=== PATIENT | female | born 1970 | race Caucasian/White ===

== ENCOUNTER 2024-05-20 10:25 | Observation (INO) | payer MEDICAID, SELFPAY ==
[2024-05-20] VITALS (8 sets, daily range): BP systolic 92–172; BP diastolic 56–93; PULSE 53–73; RESP 14–18; TEMP 36.2–36.7; O2SAT 92–98; BMI 29.5; BMI 31.2
--- NOTE | 2024-05-20 11:34 | EX.ED.DYSGE1 ---
HPI History of Present Illness Chief Complaint: Weakness Informant: patient and spouse/S.O. Narrative Narrative: 53-year-old female presenting to the emergency room with generalized weakness. Patient has a history most recently of right tonsillar cancer. She just finished radiation chemotherapy at [facility]. He patient earlier this month was admitted for anemia and given blood transfusion. Patient notes continued right tonsillar pain. She notes nausea. She is concerned she may have thrush again. She states that nothing seems to make her pain better. She gets mild temporary relief with Magic mouthwash/viscous lidocaine. Patient takes Dilaudid. She does have a feeding tube and has been using that and maintaining weight. Patient recently moved and have not been to this hospital before. Her significant other, Sundar, has access to [employer]. [facility] Medical History (Updated 05/20/24 @ 14:[address] Benjamín Alvarez DO) Right tonsillar squamous cell carcinoma COPD (chronic obstructive pulmonary disease) Allergy/AdvReac Type Severity Reaction Status Date / Time morphine Allergy Mild Other Verified 05/20/24 12:00 povidone-iodine (From Allergy Anaphylaxis Verified 05/20/24 12:00 Betadine) Social History Smoking Status: Current every day smoker tobacco type: cigarettes ROS ROS ED ROS Narrative Generalized fatigue Constitutional Constitutional ED: Reports chills; Denies fever(s) or weight loss Eyes Eyes: Denies change in vision or diplopia ENT ENT ED: Reports ear pain and sore throat; Denies rhinorrhea Cardiovascular Cardiovascular: Denies chest pain, orthopnea, palpitations or racing heartbeat Respiratory/Chest Respiratory/Chest: Denies cough, dyspnea or orthopnea Gastrointestinal Gastrointestinal: Reports nausea; Denies abdominal pain, diarrhea or vomiting Genitourinary Genitourinary ED: Denies dysuria, hematuria or urinary frequency Musculoskeletal Musculoskeletal: Denies arthralgias or myalgias Integumentary Denies abscess or rash Neurologic Neurologic: Denies headache(s) or weakness Psychiatric Psychiatric: Denies anxiety, depression, suicidal ideation or suicidal thoughts Endocrine Endocrinology: Denies polydipsia, polyphagia or polyuria Allergic/Immunologic Allergic/Immunologic ED: Denies mouth swelling, tongue swelling or urticaria EXAM Physical Exam Const Vital Signs: 05/20/24 10:25 05/20/24 12:15 05/20/24 12:25 Temperature 97.1 F L Temperature Source Temporal Pulse Rate 70 73 Pulse Rate [Lying] Pulse Rate [Sitting (for 1 minute prior to obtaining)] Pulse Rate [Standing (for 1 minute prior to obtaining)] Respiratory Rate 18 16 Respiratory Pattern Normal Blood Pressure 92/63 172/93 H Blood Pressure [Lying] Blood Pressure [Sitting (for 1 minute prior to obtaining)] Blood Pressure [Standing (for 1 minute prior to obtaining)] Blood Pressure Mean 72 119 Blood Pressure Mean [Lying] Blood Pressure Mean [Sitting (for 1 minute prior to obtaining)] Blood Pressure Mean [Standing (for 1 minute prior to obtaining)] Pulse Ox 92 95 Oxygen Delivery Method Room Air Room Air 05/20/24 12:55 05/20/24 14:00 Temperature Temperature Source Pulse Rate 53 L Pulse Rate [Lying] 68 Pulse Rate [Sitting (for 1 minute prior to obtaining)] 62 Pulse Rate [Standing (for 1 minute prior to obtaining)] 66 Respiratory Rate 18 Respiratory Pattern Blood Pressure 116/72 Blood Pressure [Lying] 103/56 L Blood Pressure [Sitting (for 1 minute prior to obtaining)] 113/77 Blood Pressure [Standing (for 1 minute prior to obtaining)] 110/73 Blood Pressure Mean 86 Blood Pressure Mean [Lying] 71 Blood Pressure Mean [Sitting (for 1 minute prior to obtaining)] 89 Blood Pressure Mean [Standing (for 1 minute prior to obtaining)] 85 Pulse Ox 98 Oxygen Delivery Method Room Air Positive well nourished and well developed General Appearance ED: well developed HEENT Reports normocephalic, head/scalp atraumatic and moist mucous membranes HEENT Narrative: There were no significant radiation vazquez on the skin of the neck or face. There is evidence of thrush noted on the right tonsillar pillar left tonsillar pillar and left soft palate as well as left buccal mucosa. Eyes PERRL and EOMs intact bilaterally Neck no lymphadenopathy, supple and no JVD Resp normal respiratory effort and clear to auscultation bilaterally Cardio regular rate, regular rhythm and no murmurs GI normal to inspection, nondistended, normoactive bowel sounds and non-tender Palpation: soft Back/Spine no CVA tenderness and normal ROM Extremity normal to inspection General Extremety ED: Negative for edema General Extremity: Negative for edema Neuro oriented x3 and CN's II-XII intact bilaterally Sensorium / Orientation: alert Motor Exam: strength 5/5 throughout Psych mental status grossly normal Mood & Affect: Negative for depressed or tearful Skin no rashes or lesions noted and no wounds MDM MDM MDM Narrative Medical decision making narrative: Differential diagnosis includes but not limited to dehydration anemia electrolyte imbalance cardiac dysrhythmias White count returns at 7.3 hemoglobin 8.2 which seems consistent with her prior values recently at [facility] which the hide and shows me on his phone. Platelet count is 215. Potassium noted to be markedly low at 2.6 with a magnesium of 1.6. BUN of 21 creatinine 1.43. Alkaline phosphatase is 168. Lipase 10. Urinalysis shows no overt infection. Patient was treated with IV fluids. With the hypokalemia I asked for an EKG. He was noted that she was bradycardic and I placed her on the monitor and noted that she would become bradycardic into the 30s and then come back up into the 60s and this process was repeated intermittently. With the potassium we administered IV potassium and potassium through the PEG tube. Patient is to be taking potassium supplementation at home. We also administered IV magnesium. Troponin is negative. With the hypokalemia and the bradycardia I spoke with the patient about possibly admitting here versus transferring back to [facility]. She would like to stay here. She has not had this type of issue noted in the past and I wonder if this is related to her hypokalemia. I will speak with the hospitalist regarding admission I spoke with the patient at length regarding the pain from her radiation and tonsils. We gave her Dilaudid but she notes that almost nothing seems to make the pain better other than some viscous lidocaine which I would agree is a temporary fix. Significant other and the patient initially declined any benzodiazepine for anxiety to help her relax. She has been taking this but does not like it as it makes her just sleepy. I spoke with her regarding her mental health and advised her that she may wish to speak with psychiatry that there are some medications that may help with her anxiety pain and depression. They will discuss this further. History & Record Review Discussion w/independent historian: Patient and Significant other Additional record(s) reviewed:: Prior outpatient record and Prior labs Lab Data Attestation: I reviewed the patient's lab results. Labs: Laboratory Results - last 24 hr 05/20/24 05/20/2405/20/24 12:02 13:00 14:30 WBC 7.3 RBC 2.56 L Hgb 8.2 L Hct 24.4 L MCV 95.3 MCH 32.0 MCHC 33.6 RDW Std Deviation 54.1 H RDW Coeff of Rubi 15.6 H Plt Count 215 MPV 10.1 Immature Gran % (Auto) 0.400 Neut % (Auto) 67.8 Lymph % (Auto) 16.4 L Evangeline % (Auto) 13.1 H Eos % (Auto) 1.9 Baso % (Auto) 0.4 Absolute Neuts (auto) 5.0 Absolute Lymphs (auto) 1.20 Nucleated RBC % 0 Sodium 140 Potassium 2.6 L* Chloride 101 Carbon Dioxide 30.0 Anion Gap 9 BUN 21 H Creatinine 1.43 H Estim Creat Clear Calc 40.46 Est GFR (MDRD) Af Amer 49 L Est GFR (MDRD) Non-Af 41 L BUN/Creatinine Ratio 14.7 Glucose 92 Calcium 8.4 L Magnesium Cancelled 1.6 Total Bilirubin 0.80 Direct Bilirubin 0.37 H AST 14 L ALT 7 L Alkaline Phosphatase 168 H Troponin I High Sens 9 Total Protein 5.9 L Albumin 2.6 L Globulin 3.3 Lipase 10 L Urine Color Yellow Urine Clarity Clear Urine pH 5.0 Ur Specific [place] 1.015 Urine Protein 15 H Urine Glucose (UA) Normal Urine Ketones 15 H Urine Occult Blood Negative Urine Nitrite Negative Urine Bilirubin 1 H Urine Urobilinogen 4 H Ur Leukocyte Esterase Negative Urine RBC 0 SEEN Urine WBC 0 SEEN Ur Squamous Epith Cells 0-5 SEEN Urine Bacteria 1+ Urine Mucus 0 SEEN EKG Initial EKG: Attestation: I personally reviewed and interpreted this EKG as follows: Comments: Sinus bradycardia with a ventricular rate of 43 bpm. There is a marked sinus arrhythmia noted. Discharge Plan Dx/Rx/DC Orders Clinical Impression: Acute hypokalemia, Acute dehydration, Primary squamous cell carcinoma of tonsil, Bradycardia Disposition Disposition: Acute Care [facility]
[2024-05-20] MEDS: 0.9% Normal Saline (1000mL) 1,000 ML 1000 ML IV ×2 (11:58→12:24)
[2024-05-20 12:08] LABS: Basophil# 0.03 X10^3/uL; Basophil% 0.4 % (0-1); Eosinophil# 0.14 X10^3/uL; Eosinophils% 1.9 % (0-5); Hematocrit 24.4 % (37-47); Hemoglobin 8.2 g/dL (12.0-15.0); Lymphocyte % 16.4 % (19-41); Mean Corp Hgb Conc 33.6 g/dL (32-36); Mean Corpuscular Volume 95.3 fL (81-99); Mean Platelet Vol. 10.1 fl (6.2-12.0); Monocyte# 0.96 X10^3/uL; Monocyte% 13.1 % (0-10); NRBC Flagged by Analyzer 0 % (0-5); Neutrophil # 4.95 X10^3/uL (2.7-7.7); Neutrophil % 67.8 % (47-70); Platelet Count 215 K/mm3 (150-450); RBC Distribution Width CV 15.6 % (11.6-14.6); RBC Distribution Width SD 54.1 fl (35.1-43.9); Red Blood Count 2.56 M/mm3 (4.2-5.4); White Blood Count 7.3 K/mm3 (4.4-11.0)
[2024-05-20] MEDS: HYDROmorphone 1 MG/ML Syringe IV (12:24)
[2024-05-20 13:04] LABS: Mucous, Urine 0 SEEN /hpf (<or=2+); Red Blood Cells-Urine 0 SEEN /hpf (0-5); White Blood Cells 0 SEEN /hpf (0-5)
[2024-05-20 13:05] LABS: Color, Urine Yellow (Yellow); Glucose, Dipstick Normal (Normal); Ketone-Dipstick 15 mg/dl (Negative); Leukocyte Esterase-Dipstick Negative /ul (Negative); Nitrite-Dipstick Negative (Negative); Occult Blood-Urine Negative /ul (Negative); Protein-Dipstick 15 mg/dl (Negative); Specific Gravity, Urine 1.015 (1.002-1.030); Urine Bilirubin Dipstick 1 mg/dL (Negative); Urine Clarity Clear (Clear); Urine Urobilinogen 4 mg/dl (Normal)
[2024-05-20 13:12] LABS: AST(SGOT) 14 U/L (15-37); Alanine Aminotransfer ALT/SGPT 7 U/L (13-56); Albumin, Serum 2.6 g/dL (3.2-5.0); Alkaline Phosphatase 168 U/L (45-117); Anion Gap 9 (5-15); BUN 21 mg/dL (7-18); BUN/Creat Ratio 14.7 RATIO (10-20); Bilirubin, Direct 0.37 mg/dL (0.00-0.30); Calcium,Total 8.4 mg/dL (8.5-10.1); Chloride 101 mmol/L (98-107); Creatinine, Serum 1.43 mg/dL (0.55-1.02); EST Glomerular Filtration Rate 41 mL/min (>60); Est Glom Filt Rate - Afr Amer 49 mL/min (>60); Estimated Creatinine Clearance 40.46 ml/min; Globulin 3.3 g/dL (2.2-4.2); Glucose 92 mg/dL (74-106); Lipase 10 U/L (13-75); Potassium 2.6 mmol/L (3.5-5.1); Protein, Total 5.9 g/dL (6.4-8.2); Sodium Level 140 mmol/L (136-145)
--- NOTE | 2024-05-20 13:17 | EKG12_ITS ---
Test Reason : LOW K Blood Pressure : / mmHG Vent. Rate : 043 BPM Atrial Rate : 059 BPM P-R Int : 136 ms QRS Dur : 100 ms QT Int : 446 ms P-R-T Axes : 057 -14 011 degrees QTc Int : 376 ms Sinus bradycardia with marked sinus arrhythmia Incomplete right bundle branch block T wave abnormality, consider inferior ischemia Abnormal ECG Confirmed by BOBBI MATHEWS, LUCILLE ([id number]), writer editor KENDY NICHOLS ([id number]) on 05/23/2024 8:09:59 AM Referred By: Confirmed By:LUCILLE MARTINES MD
[2024-05-20 13:19] LABS: Bacteria 1+ /hpf (None Seen); Squamous Epithelial Cells - UA 0-5 SEEN /hpf (5-10)
[2024-05-20] MEDS: Potassium Chloride 10mEq/100mL 10 MEQ/100 ML IV.SOLN. 100 MEQ IV BOLUS (13:58)
[2024-05-20] MEDS: Potassium Chloride Oral Soln 20 MEQ/15 ML UDC 40 MEQ PO (13:58)
[2024-05-20] MEDS: LORazepam 2 MG/ML Syringe 1 MG IV (14:31)
--- NOTE | 2024-05-20 14:53 | PCM.HP.STD ---
HPI - General General Date of Admission: 05/20/24 Date of Service: 05/20/24 Chief Complaint: Generalized weakness HPI Narrative ANTON BOSTON, is a 53-year-old female with history of right tonsillar cancer with GJ tube who just finished chemo and radiation at [facility] and COPD who presented for generalized weakness. She was admitted earlier this month for anemia and required blood transfusion. Patient has continued right tonsillar pain and some nausea and she was concerned for thrush. In ED patient with white count of 7.3, hemoglobin 8.2 and potassium of 2.6 with creatinine 1.43. She also intermittently had heart rates down to 30s and was felt that this was due to electrolyte abnormalities. Workup otherwise fairly unremarkable. Given her generalized weakness with elevated creatinine low potassium and intermittent bradycardia hospitalist contacted for admission. Patient evaluated at bedside however had received medication for pain and just received medication due to her significant anxiety so she was actively falling asleep and would wake up but quickly fell back asleep and not answer questions, was not at bedside at time my exam. History obtained from report which was patient had chemo and radiation for right sided tonsillar squamous cell carcinoma that finished 2 weeks ago and since has continued to have pain in her throat and has been feeling generally unwell and weak. Reportedly supposed be on potassium but has not been taking it she feels it vazquez through the PEG tube. Has been very anxious and upset over her pain. [facility] Medical History (Updated 05/20/24 @ 15:[address] Benjamín Alvarez DO) COPD (chronic obstructive pulmonary disease) Right tonsillar squamous cell carcinoma Allergy/AdvReac Type Severity Reaction Status Date / Time morphine Allergy Mild Other Verified 05/20/24 12:00 povidone-iodine (From Allergy Anaphylaxis Verified 05/20/24 12:00 Betadine) Social History Smoking Status: Current every day smoker tobacco type: cigarettes ROS ROS Narrative Unable to answer due to mental status Vital Signs Vital Signs Vital Signs: 05/20/24 10:25 05/20/24 12:15 05/20/24 12:25 Temperature 97.1 F L Temperature Source Temporal Pulse Rate 70 73 Pulse Rate [Lying] Pulse Rate [Sitting (for 1 minute prior to obtaining)] Pulse Rate [Standing (for 1 minute prior to obtaining)] Respiratory Rate 18 16 Respiratory Pattern Normal Blood Pressure 92/63 172/93 H Blood Pressure [Lying] Blood Pressure [Sitting (for 1 minute prior to obtaining)] Blood Pressure [Standing (for 1 minute prior to obtaining)] Blood Pressure Mean 72 119 Blood Pressure Mean [Lying] Blood Pressure Mean [Sitting (for 1 minute prior to obtaining)] Blood Pressure Mean [Standing (for 1 minute prior to obtaining)] Pulse Ox 92 95 Oxygen Delivery Method Room Air Room Air 05/20/24 12:55 05/20/24 14:00 05/20/24 14:52 Temperature 98.0 F Temperature Source Pulse Rate 53 L 53 L Pulse Rate [Lying] 68 Pulse Rate [Sitting (for 1 minute prior to obtaining)] 62 Pulse Rate [Standing (for 1 minute prior to obtaining)] 66 Respiratory Rate 18 16 Respiratory Pattern Blood Pressure 116/72 116/72 Blood Pressure [Lying] 103/56 L Blood Pressure [Sitting (for 1 minute prior to obtaining)] 113/77 Blood Pressure [Standing (for 1 minute prior to obtaining)] 110/73 Blood Pressure Mean 86 86 Blood Pressure Mean [Lying] 71 Blood Pressure Mean [Sitting (for 1 minute prior to obtaining)] 89 Blood Pressure Mean [Standing (for 1 minute prior to obtaining)] 85 Pulse Ox 98 98 Oxygen Delivery Method Room Air Weight Weight: 70.76 kg Body Mass Index (BMI) 29.5 Physical Exam Narrative General: Received medications due to her significant anxiety, will wake up but minimally willing to answer questions and falls back asleep quickly HEENT: Atraumatic, does have white patches consistent with thrush in mouth Eyes: Anicteric, normal conjunctiva, extraocular movements grossly intact Neck: Supple Respiratory:normal respiratory effort Cardiovascular: Sinus, intermittently heart rate goes to 30s in the back up to 50s to 70s GI: Soft, nontender, nondistended Extremities: No edema Musculoskeletal: Moving all extremities Neuro: No overt focal neurological deficits the patient not participating in neuroexam Skin: No rashes appreciated Psych: Not cooperating but seems in part due to being tired from treating pain and anxiety Results Lab / Micro Data 05/20/24 12:02 05/20/24 12:02 Labs: Laboratory Results - last 24 hr 05/20/24 12:02: WBC 7.3, RBC 2.56 L, Hgb 8.2 L, Hct 24.4 L, MCV 95.3, MCH 32.0, MCHC 33.6, RDW Std Deviation 54.1 H, RDW Coeff of Rubi 15.6 H, Plt Count 215, MPV 10.1, Immature Gran % (Auto) 0.400, Neut % (Auto) 67.8, Lymph % (Auto) 16.4 L, [place] % (Auto) 13.1 H, Eos % (Auto) 1.9, Baso % (Auto) 0.4, Absolute Neuts (auto) 5.0, Absolute Lymphs (auto) 1.20, Nucleated RBC % 0, Sodium 140, Potassium 2.6 L*, Chloride 101, Carbon Dioxide 30.0, Anion Gap 9, BUN 21 H, Creatinine 1.43 H, Estim Creat Clear Calc 40.46, Est GFR (MDRD) Af Amer 49 L, Est GFR (MDRD) Non-Af 41 L, BUN/Creatinine Ratio 14.7, Glucose 92, Calcium 8.4 L, Magnesium Cancelled, Total Bilirubin 0.80, Direct Bilirubin 0.37 H, AST 14 L, ALT 7 L, Alkaline Phosphatase 168 H, Total Protein 5.9 L, Albumin 2.6 L, Globulin 3.3, Lipase 10 L 05/20/24 13:00: Urine Color Yellow, Urine Clarity Clear, Urine pH 5.0, Ur Specific [place] 1.015, Urine Protein 15 H, Urine Glucose (UA) Normal, Urine Ketones 15 H, Urine Occult Blood Negative, Urine Nitrite Negative, Urine Bilirubin 1 H, Urine Urobilinogen 4 H, Ur Leukocyte Esterase Negative, Urine RBC 0 SEEN, Urine WBC 0 SEEN, Ur Squamous Epith Cells 0-5 SEEN, Urine Bacteria 1+, Urine Mucus 0 SEEN Assessment & Plan Assessment/Plan (1) Bradycardia: (2) Acute hypokalemia: (3) Primary squamous cell carcinoma of tonsil: PLAN: Plan # Generalized weakness -Patient with elevated creatinine low potassium and low normal magnesium -Replace potassium and magnesium -Gentle IV fluids -PT/OT -Nutrition consult -Per external records patient has history of bariatric surgery, check B12, folate, vitamin D, TSH #Elevated Cr- suspect component of dehydration -Outside records show creatinine of 1.14 on 05/02 -Creatinine today 1.43 -Gentle IV fluids -Repeat in the a.m. #Intermittent sinus bradycardia -Patient with heart rate that will go down into 30s but then back up to 50s to 70s, does not sustain no heart blocks appreciated -Suspect it may be due to hypokalemia and low normal magnesium -Monitor on telemetry -Replace electrolytes -Awaiting home medication updates, will hold any javad blockers -Asymptomatic and already seems to be overall trending up with potassium being given in the ED -Will obtain routine echo # Hypokalemia -Replace -Repeat BMP -Magnesium low normal will also replace # Normocytic anemia -Reportedly had to be admitted earlier this month for transfusion at [facility] -Hemoglobin 8.2, similar to the 8.6 on 05/02/2024 -No reported active blood loss -Repeat in a.m., no further workup at this time and does not require transfusion #Right tonsillar squamous cell carcinoma (HCC) and had GJ tube -invasive non-keratinizing SCC of right tonsil, confirmed on biopsy 01/12/24: Stage III (cT4, cN0, cM0, p16+) -Established with [facility] ENT Dr. Wylie -Had gastrojejunostomy tube, just finished chemo and radiation at [facility] -Does take p.o. but had feeding tube in place for supplementation -Nutrition consult -Pain control -Magic mouth wash prn -Supportive care -Patient was offered in ED to go to [facility] if that was her preference given her care was there and patient reported she did not want to go back to [facility] and thus was admitted here # Thrush -Nystatin swish and swallow #Hx COPD -Albuterol as needed, awaiting home med updates to resume home inhalers #Anxiety -Awaiting home med rec update -Will add prn hydroxyzine in the meantime #GERD -Continue PPI once home medications updated as it appears she has filled a PPI previously #Hx bariatric surgery -Per clinicsyn records -Will check B12, folate, vitamin D given patient's generalized weakness and history of bariatric surgery #DVT ppx: Lovenox subcu Mallory Valadez MD Time spent in the patient's overall evaluation,decision-making process, review of diagnostic data, adjustment of management, discussion with other providers, nursing nursing and ancillary staff involved in patient's care documentation, 60 Minutes Charges/Coding Visit Charges Inpatient E&M: 13435 Init Hosp L2
[2024-05-20] MEDS: Magnesium Sulfate 2 GM in Dextrose 5%-Water (100mL Bag) 100 ML IV (14:57)
[2024-05-20 14:59] LABS: Magnesium 1.6 mg/dL (1.6-2.6); Troponin-I HS 9 pg/mL (3.0-54.0)
[2024-05-20] MEDS: 0.9% Normal Saline (1000mL) 1,000 ML 50 ML IV (17:13)
[2024-05-20] MEDS: oxyCODONE 5 MG Tablet PO (18:27)
[2024-05-20] MEDS: Nystatin 500,000 UNIT/5 ML PO.SYRINGE (WCH) 500000 UNIT PO ×2 (18:27→21:19)
[2024-05-20] MEDS: Heparin Injection (Vial) 5,000 UNIT/ML VIAL 5000 UNIT SC (21:20)
[2024-05-20] MEDS: Acetaminophen 500 MG Tablet 1000 MG PO (21:20)
[2024-05-20] MEDS: Gabapentin 300 MG Capsule 600 MG PO (21:23)
[2024-05-20 21:51] LABS: Anion Gap 5 (5-15); BUN 16 mg/dL (7-18); BUN/Creat Ratio 13.8 RATIO (10-20); Calcium,Total 8.3 mg/dL (8.5-10.1); Chloride 107 mmol/L (98-107); Creatinine, Serum 1.16 mg/dL (0.55-1.02); EST Glomerular Filtration Rate 52 mL/min (>60); Est Glom Filt Rate - Afr Amer 62 mL/min (>60); Estimated Creatinine Clearance 51.39 ml/min; Glucose 106 mg/dL (74-106); Magnesium 2.2 mg/dL (1.6-2.6); Potassium 3.3 mmol/L (3.5-5.1); Sodium Level 140 mmol/L (136-145)
[2024-05-20] MEDS: BMX LIQUID 180 ML 20 ML PO (23:55)
[2024-05-21] MEDS: HYDROmorphone 1 MG/ML Syringe IV (00:53)
[2024-05-21] MEDS: Potassium Chloride Oral Soln 20 MEQ/15 ML UDC 60 MEQ PO (01:07)
[2024-05-21 03:27] VITALS: BP 118/72; PULSE 67; RESP 15; TEMP 37.4; O2SAT 94
[2024-05-21] MEDS: oxyCODONE 5 MG Tablet PO ×2 (03:43→09:51)
[2024-05-21] MEDS: BMX LIQUID 180 ML 20 ML PO (03:44)
[2024-05-21 06:23] LABS: Absolute Neutrophil Count 4.1 X10^3/uL (2.0-7.7); Basophil# 0.03 X10^3/uL; Basophil% 0.5 % (0-1); Eosinophil# 0.14 X10^3/uL; Eosinophils% 2.2 % (0-5); Hematocrit 24.3 % (37-47); Hemoglobin 8.1 g/dL (12.0-15.0); Lymphocyte % 17.6 % (19-41); Mean Corp Hgb Conc 33.3 g/dL (32-36); Mean Corpuscular Hgb 32.4 pg (27.0-32.0); Mean Corpuscular Volume 97.2 fL (81-99); Monocyte# 0.86 X10^3/uL; Monocyte% 13.8 % (0-10); NRBC Flagged by Analyzer 0 % (0-5); Neutrophil # 4.09 X10^3/uL (2.7-7.7); Neutrophil % 65.4 % (47-70); Platelet Count 209 K/mm3 (150-450); RBC Distribution Width CV 15.5 % (11.6-14.6); RBC Distribution Width SD 54.4 fl (35.1-43.9); White Blood Count 6.3 K/mm3 (4.4-11.0)
[2024-05-21 07:05] VITALS: PULSE 72; RESP 17; O2SAT 91
[2024-05-21] MEDS: Ipratropium/Albuterol Sulfate 3 ML AMPUL.NEB INHALATION (07:05)
[2024-05-21 07:26] LABS: ALB/GLOB Ratio 0.7 RATIO (0.9-2.4); AST(SGOT) 11 U/L (15-37); Alanine Aminotransfer ALT/SGPT 7 U/L (13-56); Albumin, Serum 2.4 g/dL (3.2-5.0); Alkaline Phosphatase 164 U/L (45-117); Anion Gap 5 (5-15); BUN 14 mg/dL (7-18); BUN/Creat Ratio 14.2 RATIO (10-20); Calcium,Total 8.4 mg/dL (8.5-10.1); Chloride 110 mmol/L (98-107); Creatinine, Serum 0.99 mg/dL (0.55-1.02); EST Glomerular Filtration Rate 62 mL/min (>60); Est Glom Filt Rate - Afr Amer 75 mL/min (>60); Estimated Creatinine Clearance 60.22 ml/min; Globulin 3.3 g/dL (2.2-4.2); Glucose 92 mg/dL (74-106); Potassium 3.4 mmol/L (3.5-5.1); Protein, Total 5.7 g/dL (6.4-8.2); Sodium Level 142 mmol/L (136-145); Thyroid Stim Hormone (TSH) 0.241 uIU/mL (0.358-3.740)
[2024-05-21 09:27] VITALS: BP 114/66; PULSE 79; RESP 18; TEMP 37.3; O2SAT 94
--- NOTE | 2024-05-21 09:43 | PN.HOSP_ITS ---
Reason for Visit Reason for Visit: Diagnoses Malignant neoplasm of tonsil, unspecified (05/20/24) Hypokalemia (05/20/24) Bradycardia, unspecified (05/20/24) Subjective Subjective Feeling better. Anxious to go home. Can't eat because her mouth is so sore. Objective Data Objective Data Vital Signs: Vital Signs Temp Pulse Resp BP Pulse Ox O2 Del Method 37.4 C H 72 17 118/72 91 Room Air 05/21/24 03:27 05/21/24 07:05 05/21/24 07:05 05/21/24 03:27 05/21/24 07:05 05/21/24 07:05 Oxygen Delivery Method Room Air Weight: 75.1 kg Body Mass Index (BMI) 31.2 Intake & Output: Intake and Output for Last 24 Hours 05/19/24 05/20/24 05/21/24 23:59 23:59 23:59 Intake Total 1637.33 / 1637.33 Balance 1637.33 / 1637.33 Lab / Micro Data 05/21/24 06:15 05/21/24 06:15 Labs: Laboratory Results - last 24 hr 05/20/24 12:02: WBC 7.3, RBC 2.56 L, Hgb 8.2 L, Hct 24.4 L, MCV 95.3, MCH 32.0, MCHC 33.6, RDW Std Deviation 54.1 H, RDW Coeff of Rubi 15.6 H, Plt Count 215, MPV 10.1, Immature Gran % (Auto) 0.400, Neut % (Auto) 67.8, Lymph % (Auto) 16.4 L, M barrera % (Auto) 13.1 H, Eos % (Auto) 1.9, Baso % (Auto) 0.4, Absolute Neuts (auto) 5.0, Absolute Lymphs (auto) 1.20, Nucleated RBC % 0, Sodium 140, Potassium 2.6 L*, Chloride 101, Carbon Dioxide 30.0, Anion Gap 9, BUN 21 H, Creatinine 1.43 H, Estim Creat Clear Calc 40.46, Est GFR (MDRD) Af Amer 49 L, Est GFR (MDRD) Non-Af 41 L, BUN/Creatinine Ratio 14.7, Glucose 92, Calcium 8.4 L, Magnesium Cancelled, Total Bilirubin 0.80, Direct Bilirubin 0.37 H, AST 14 L, ALT 7 L, Alkaline Phosphatase 168 H, Total Protein 5.9 L, Albumin 2.6 L, Globulin 3.3, Lipase 10 L 05/20/24 13:00: Urine Color Yellow, Urine Clarity Clear, Urine pH 5.0, Ur Specific [place] 1.015, Urine Protein 15 H, Urine Glucose (UA) Normal, Urine Ketones 15 H, Urine Occult Blood Negative, Urine Nitrite Negative, Urine Bilirubin 1 H, Urine Urobilinogen 4 H, Ur Leukocyte Esterase Negative, Urine RBC 0 SEEN, Urine WBC 0 SEEN, Ur Squamous Epith Cells 0-5 SEEN, Urine Bacteria 1+, Urine Mucus 0 SEEN 05/20/24 14:30: Magnesium 1.6, Troponin I High Sens 9 05/20/24 21:01: Sodium 140, Potassium 3.3 L, Chloride 107, Carbon Dioxide 28.0, Anion Gap 5, BUN 16, Creatinine 1.16 H, Estim Creat Clear Calc 51.39, Est GFR (MDRD) Af Amer 62, Est GFR (MDRD) Non-Af 52 L, BUN/Creatinine Ratio 13.8, Glucose 106, Calcium 8.3 L, Magnesium 2.2 05/21/24 06:15: WBC 6.3, RBC 2.50 L, Hgb 8.1 L, Hct 24.3 L, MCV 97.2, MCH 32.4 H , MCHC 33.3, RDW Std Deviation 54.4 H, RDW Coeff of Rubi 15.5 H, Plt Count 209, MPV 10.0, Immature Gran % (Auto) 0.500, Neut % (Auto) 65.4, Lymph % (Auto) 17.6 L, Mcleod % (Auto) 13.8 H, Eos % (Auto) 2.2, Baso % (Auto) 0.5, Absolute Neuts (auto) 4.1, Absolute Lymphs (auto) 1.10, Nucleated RBC % 0, Sodium 142, P otassium 3.4 L, Chloride 110 H, Carbon Dioxide 27.0, Anion Gap 5, BUN 14, Creatinine 0.99, Estim Creat Clear Calc 60.22, Est GFR (MDRD) Af Amer 75, Est GFR (MDRD) Non-Af 62, BUN/Creatinine Ratio 14.2, Glucose 92, Calcium 8.4 L, Total Bilirubin 0.80, AST 11 L, ALT 7 L, Alkaline Phosphatase 164 H, Total Protein 5.7 L, Albumin 2.4 L, Globulin 3.3, Albumin/Globulin Ratio 0.7 L, Folate 11.80, TSH 0.241 L Physical Exam Const alert and no apparent distress Resp normal respiratory effort, no retractions, no use of accessory muscles and clear to auscultation bilaterally Cardio regular rate, regular rhythm, S1 normal heart sound and S2 normal heart sound GI normal to inspection, nondistended, normoactive bowel sounds, soft to palpation, non-tender and non-distended Assessment & Plan Assessment/Plan (1) Bradycardia: (2) Acute hypokalemia: (3) Primary squamous cell carcinoma of tonsil: PLAN: Plan Hypokalemia, severe * replaced and improving * complicated by hypomagnesemia, which has also been replaced. * likely an absorption issue with her prior jose-en-y Sinus bradycardia * intermittent * may be associated with e-lyte issues. monitor * she take no rate-controlling medications. * echo ordered Debility * likely multifactorial from e-lyte abnormalities combined with medications (lorazepam, hydromorphone, gabapentin), dehydration * PT OT evaluate and treat. * I personally reviewed her OARRS report and patient last received lorazepam March 31 and that prescription was originally written on March 03 and she received 30 at that time. With her debility, will hold off on that for now. She did receive hydromorphone # 63 for 7-day supply from Dr. Lena Carter. She received that on May 17 and prior to that she received it April 24. Back in March she actually received methadone from the same physician. Will adjust her pain medications to what she does take at home. Will resume her oral hydromorphone, discontinue the IV hydromorphone and oral oxycodone. Normocytic anemia * Reportedly had to be admitted earlier this month for transfusion at [facility] * Hemoglobin 8.2, similar to the 8.6 on 05/02/2024 * No active bleeding * TSH and folic acid within normal limits. B12 pending. Check iron, ferritin. Right tonsillar squamous cell carcinoma (HCC) and had GJ tube * invasive non-keratinizing SCC of right tonsil, confirmed on biopsy 01/12/24: Stage III (cT4, cN0, cM0, p16+). Established with [facility] ENT Dr. Wylie. Had gastrojejunostomy tube, just finished chemo and radiation at [facility]. Does take p.o. but had feeding tube in place for supplementation * Nutrition consult * Patient was offered in ED to go to [facility] if that was her preference given her care was there and patient reported she did not want to go back to [facility] and thus was admitted here Thrush * Nystatin swish and swallow. Add fluconazole for 7-day course. Malnutrition * Nutrition recommendin cc Jevity 1.2 via GJ tube at least 1-2 times per day. At night daily. Patient instructed to take oral meal first and then take oral supplement such as Ensure max or Ensure Plus if p.o. meal is less than 50% and ultimately use tube feeds support if unable to take oral Chronic conditions: * COPD: -Albuterol as needed, awaiting home med updates to resume home inhalers * Anxiety: buspirone * GERD: H2B * bariatric surgery DVT ppx: Lovenox subcu
[2024-05-21] MEDS: Heparin Injection (Vial) 5,000 UNIT/ML VIAL 5000 UNIT SC (09:51)
[2024-05-21] MEDS: Gabapentin 300 MG Capsule 600 MG PO (09:51)
[2024-05-21] MEDS: Nystatin 500,000 UNIT/5 ML PO.SYRINGE (WCH) 500000 UNIT PO (09:52)
[2024-05-21 10:29] LABS: Ferritin 179 ng/mL (8-252); Iron 28 ug/dL (50-170); Iron Binding Capacity,Total 161 ug/dL (250-450); PERCENT IRON SATURATION 17.4 % (15.0-55.0)
[2024-05-21] MEDS: busPIRone 5 MG Tablet PO (12:04)
[2024-05-21] MEDS: Fluconazole 100 MG Tablet PO (12:04)
[2024-05-21] MEDS: Ibuprofen 400 MG Tablet PO (12:04)
--- NOTE | 2024-05-21 12:16 | PCM.DC.SUM ---
Providers Date of Admission: 05/20/24 Primary Care Physician: SOL VALADEZ Reason For Visit: WEAKNESS, BRADYCARDIA, ELEVATED CR, HYPOKALEMIA Diagnosis Discharge Diagnosis (1) Bradycardia: Status: Acute Code(s): R00.1 - Bradycardia, unspecified (2) Acute hypokalemia: Status: Acute Code(s): E87.6 - Hypokalemia (3) Primary squamous cell carcinoma of tonsil: Status: Acute Code(s): C09.9 - Malignant neoplasm of tonsil, unspecified Plan Hypokalemia, severe replaced and improving complicated by hypomagnesemia, which has also been replaced. likely an absorption issue with her prior jose-en-y Sinus bradycardia intermittent may be associated with e-lyte issues. monitor she take no rate-controlling medications. echo ordered Debility likely multifactorial from e-lyte abnormalities combined with medications (lorazepam, hydromorphone, gabapentin), dehydration PT OT evaluate and treat. I personally reviewed her OARRS report and patient last received lorazepam March 31 and that prescription was originally written on March 03 and she received 30 at that time. With her debility, will hold off on that for now. She did receive hydromorphone # 63 for 7-day supply from Dr. Lena Carter. She received that on May 17 and prior to that she received it April 24. Back in March she actually received methadone from the same physician. Will adjust her pain medications to what she does take at home. Will resume her oral hydromorphone, discontinue the IV hydromorphone and oral oxycodone. Normocytic anemia Reportedly had to be admitted earlier this month for transfusion at [facility] Hemoglobin 8.2, similar to the 8.6 on 05/02/2024 No active bleeding TSH and folic acid within normal limits. B12 pending. Check iron, ferritin. 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 Established with [facility] ENT Dr. Wylie. Had gastrojejunostomy tube, just finished chemo and radiation at [facility]. Does take p.o. but had feeding tube in place for supplementation Nutrition consult Patient was offered in ED to go to [facility] if that was her preference given her care was there and patient reported she did not want to go back to [facility] and thus was admitted here Thrush Nystatin swish and swallow. Add fluconazole for 7-day course. Malnutrition Nutrition recommendin cc Jevity 1.2 via GJ tube at least 1-2 times per day. At night daily. Patient instructed to take oral meal first and then take oral supplement such as Ensure max or Ensure Plus if p.o. meal is less than 50% and ultimately use tube feeds support if unable to take oral Chronic conditions: COPD: -Albuterol as needed, awaiting home med updates to resume home inhalers Anxiety: buspirone GERD: H2B bariatric surgery DVT ppx: Lovenox subcu Medications at Discharge Home Medications albuterol sulfate 90 mcg/actuation aerosol inhaler (Ventolin HFA) 2 inh inhalation BID breathing 05/20/24 bisacodyl 10 mg rectal suppository 10 mg NH DAILY PRN daily 05/20/24 buspirone 5 mg tablet 5 mg PO BID anxiety 05/20/24 famotidine 40 mg tablet 40 mg PO DAILY PRN upset stomach 05/20/24 gabapentin 300 mg capsule 600 mg PO BID pain/anxiety 05/20/24 hydromorphone 4 mg tablet 4 - 6 mg PO Q4H PRN PRN pain 05/20/24 ibuprofen 200 mg tablet (Advil) 400 mg PO Q6H pain 05/20/24 lorazepam 1 mg tablet 1 mg PO DAILY PRN before radiation 05/20/24 vjcwcydg-fkcnqgfyx-ylnaxkahi 3.5 mg/mL-10,000 unit/mL-1 % ear solution 3 drp otic (ear) BID ear 05/20/24 potassium chloride 10 mEq capsule,extended release 20 meq PO BID low potassium 05/20/24 umeclidinium 62.5 mcg-vilanterol 25 mcg/actuation powdr for inhalation (Anoro Ellipta) 1 inh inhalation DAILY breathing 05/20/24 acetaminophen 500 mg tablet 1,000 mg (2 x 500 mg) PO Q8 #0 tabs 05/21/24 fluconazole 100 mg tablet 100 mg PO DAILY #6 tabs 05/21/24 lidocaine HCl 2 % mucosal solution (Lidocaine Viscous) 1 applic PO TID PRN pain #600 mL 05/21/24 nystatin 100,000 unit/mL oral suspension 500,000 unit (5 mL) PO 4X/DAY 7 days #140 mL 05/21/24 Hospital Course Operations None Procedures None Summary of Care Provided Minutes Spent on Discharge: 36 Medical Records Data Medical Nutrition Assessment Dietitian: Malnutrition Criteria Met Start: 05/21/24 11:20 Freq: Status: Active Protocol: Document 05/21/24 12:01 RMA (Rec: 05/21/24 12:01 RMA [id number]) Nutrition Malnutrition Evidence of Malnutrition Exists Yes Malnutrition (moderate): Acute Illness/Injury Evidenced By Suboptimal Energy Intake ( Severe),Weight Loss (Moderate) Clinical Problem Acute Disease or Injury Related Malnutrition Etiology moderate pro-deuce malnutrition in the context of acute illness/R tonsil cancer related to inadequate oral intake and swallowing diffficulty Signs/Symptoms as evidenced by ~13% unintentional weight loss x past 12 months and PO meeting less than 50% estimated nutrition needs x past 6 months; need for mechanically altered food and enteral nutrition support to supplement PO Status Active Problem Recommendation Dietitian Recommendations/Changes Regular diet with consistency as per [employer]/ Will add 240mL Ensure Plus HP Q meal. Will order enteral nutrition support as needed if PO established suboptimal at meals. Per Dr. Basurto, plan is for d /c today with nutrition instruction as detailed below: Pt is instructed to take 240mL Jevity 1.2 Deuce via GJ tube at least 1-2 times per day depending on adequacy of PO at meals. Will take Jevity 1.2 Deuce at very minimum via tube at HS daily to provide an additional 288 kcal and 13 gm pro per day. Pt is instructed to take PO meal first then take PO ONS ( ensure max or plus) if PO at meal is less than 50% and ultimately use TF support if unable to take PO meal and/or ONS 4 times per day including breakfast, lunch, dinner and HS everyday. Pt is doing bolus feeds when taking TF however, reported that they do have a pump as well. [facility] involved with providing TF product and supplies. Bolus TF Jevity 1.2 Deuce up to 4 times per day if unable to take adequate PO at meals including option for ensure by mouth for additional energy, protein, vit/min. Pt is to flush 120mL free water before and after each bolus feeding. Encouraged to increase PO fluids including water to 6-8 cups per day to prevent dehydration. Contact information provided, to call RD as needed regarding PO and enteral nutrition support. Weight / BMI Weight Weight: 75.1 kg Body Mass Index (BMI) 31.2 ABG / Lab / Microbiology Data 05/21/24 06:15 05/21/24 06:15 Laboratory: Laboratory Results - last 24 hr 05/20/24 12:02: Sodium 140, Potassium 2.6 L*, Chloride 101, Carbon Dioxide 30.0, Anion Gap 9, BUN 21 H, Creatinine 1.43 H, Estim Creat Clear Calc 40.46, Est GFR (MDRD) Af Amer 49 L, Est GFR (MDRD) Non-Af 41 L, BUN/Creatinine Ratio 14.7, Glucose 92, Calcium 8.4 L, Magnesium Cancelled, Total Bilirubin 0.80, Direct Bilirubin 0.37 H, AST 14 L, ALT 7 L, Alkaline Phosphatase 168 H, Total Protein 5.9 L, Albumin 2.6 L, Globulin 3.3, Lipase 10 L 05/20/24 13:00: Urine Color Yellow, Urine Clarity Clear, Urine pH 5.0, Ur Specific [place] 1.015, Urine Protein 15 H, Urine Glucose (UA) Normal, Urine Ketones 15 H, Urine Occult Blood Negative, Urine Nitrite Negative, Urine Bilirubin 1 H, Urine Urobilinogen 4 H, Ur Leukocyte Esterase Negative, Urine RBC 0 SEEN, Urine WBC 0 SEEN, Ur Squamous Epith Cells 0-5 SEEN, Urine Bacteria 1+, Urine Mucus 0 SEEN 05/20/24 14:30: Magnesium 1.6, Troponin I High Sens 9 05/20/24 21:01: Sodium 140, Potassium 3.3 L, Chloride 107, Carbon Dioxide 28.0, Anion Gap 5, BUN 16, Creatinine 1.16 H, Estim Creat Clear Calc 51.39, Est GFR (MDRD) Af Amer 62, Est GFR (MDRD) Non-Af 52 L, BUN/Creatinine Ratio 13.8, Glucose 106, Calcium 8.3 L, Magnesium 2.2 05/21/24 06:15: WBC 6.3, RBC 2.50 L, Hgb 8.1 L, Hct 24.3 L, MCV 97.2, MCH 32.4 H, MCHC 33.3, RDW Std Deviation 54.4 H, RDW Coeff of Rubi 15.5 H, Plt Count 209, MPV 10.0, Immature Gran % (Auto) 0.500, Neut % (Auto) 65.4, Lymph % (Auto) 17.6 L, Mathews % (Auto) 13.8 H, Eos % (Auto) 2.2, Baso % (Auto) 0.5, Absolute Neuts (auto) 4.1, Absolute Lymphs (auto) 1.10, Nucleated RBC % 0, Sodium 142, Potassium 3.4 L, Chloride 110 H, Carbon Dioxide 27.0, Anion Gap 5, BUN 14, Creatinine 0.99, Estim Creat Clear Calc 60.22, Est GFR (MDRD) Af Amer 75, Est GFR (MDRD) Non-Af 62, BUN/Creatinine Ratio 14.2, Glucose 92, Calcium 8.4 L, Iron 28 L, TIBC 161 L, Iron Saturation 17.4, Ferritin 179, Total Bilirubin 0.80, AST 11 L, ALT 7 L, Alkaline Phosphatase 164 H, Total Protein 5.7 L, Albumin 2.4 L, Globulin 3.3, Albumin/Globulin Ratio 0.7 L, Folate 11.80, TSH 0.241 L D/C Instructions Discharge Diet: - (2045 cc Jevity 1.2 via GJ tube at least 1-2 times per day. At night daily. Patient instructed to take oral meal first and then take oral supplement such as Ensure max or Ensure Plus if p.o. meal is less than 50% and ultimately use tube feeds support if unable to take oral) Meaningful Use Info Meaningful Use Meaningful Use Diagnoses (Choose all that apply): None applicable Ischemic Stroke Statin Dosing Therapy Reference: STATIN DOSE THERAPY REFERENCE: * Patients > 75 years receive moderate or high dose statin therapy. * Patients 75 years or YOUNGER should receive HIGH intensity statin dose unless contraindicated. You will be required to document reason for non-treatment if statin daily dose does not meet guidelines. HIGH DOSE STATIN THERAPY DAILY Atorvastatin > than or = to 40 mg Rosuvastatin > than or = to 20 mg Amlodipine + Atorvastatin > than or = to 2.5/40 mg Ezetimibe + Simvastatin 10/80 mg Simvastatin 80mg Discharge Plan Admission Admit Date/Time: 05/20/24 14:53 Primary Reason for Your Visit: hypokalemia Attending Provider: Miguel Basurto Primary Care Provider: SOL VALADEZ Consulting Providers: Mallory Valadez Instructions Additional Instructions / Restrictions: Please follow-up with your oncologist, ear nose and throat physician per routine. You may follow-up with [place] [facility] as well for follow-up. Discharge Orders/Prescriptions Prescriptions: New fluconazole 100 mg Tablet 100 mg PO DAILY Qty: 6 0RF acetaminophen 500 mg Tablet 1,000 mg PO Q8 Qty: 0 0RF nystatin 100,000 unit/mL Suspension 500,000 unit PO 4X/DAY 7 Days Qty: 140 0RF Continued Anoro Ellipta 62.5-25 mcg/actuation blister with device 1 inh inhalation DAILY hydromorphone 4 mg tablet 4 - 6 mg PO Q4H PRN PRN (Reason: pain) gabapentin 300 mg capsule 600 mg PO BID ibuprofen [Advil] 200 mg tablet 400 mg PO Q6H albuterol sulfate [Ventolin HFA] 90 mcg/actuation HFA aerosol inhaler 2 inh inhalation BID bisacodyl 10 mg suppository 10 mg NH DAILY PRN (Reason: daily) buspirone 5 mg tablet 5 mg PO BID famotidine 40 mg tablet 40 mg PO DAILY PRN (Reason: upset stomach) lorazepam 1 mg tablet 1 mg PO DAILY PRN (Reason: before radiation) lqblsbir-nyikwjrya-UE 3.5-10,000-1 mg/mL-unit/mL-% solution 3 drp otic (ear) BID potassium chloride 10 mEq capsule, extended release 20 meq PO BID lidocaine HCl [Lidocaine Viscous] 2 % solution 1 applic PO TID PRN (Reason: pain) Qty: 600 0RF Discontinued fluoride (sodium) [Sodium Fluoride 5000 Plus] 1.1 % cream 1 applic dental BID Referrals / Follow Up: SOL VALADEZ [Other] - Within 1 Week *[facility] [Provider Group] - Within 3 Months [facility] Doctor,Out of [Non-Staff] - Disposition Disposition (needs filled in before D/C Order can be placed): Home, Self Care Charges/Coding Visit Charges Inpatient E&M: 29685 Disch Hosp >30min
[2024-05-23 08:03] LABS: Vitamin B12 1315 pg/mL (211-911); Vitamin D,25 Hydroxy 16.1 ng/mL
== END 2024-05-21 12:57 | disposition home or self-care (01) ==
LOC: ED 14:20 → PCU 15:19
PROVIDERS: Admitting Provider Internal Medicine; Emergency Provider Emergency Medicine
DX: C09.9 Malignant neoplasm of tonsil, unspecified (principal); J44.9 Chronic obstructive pulmonary disease, unspecified; Z92.3 Personal history of irradiation; R00.1 Bradycardia, unspecified; F17.210 Nicotine dependence, cigarettes, uncomplicated; R53.81 Other malaise; D64.9 Anemia, unspecified; E86.0 Dehydration; E87.6 Hypokalemia; B37.0 Candidal stomatitis; Z92.21 Personal history of antineoplastic chemotherapy; F41.9 Anxiety disorder, unspecified; Z98.84 Bariatric surgery status; K21.9 Gastro-esophageal reflux disease without esophagitis; Z79.899 Other long term (current) drug therapy; E83.42 Hypomagnesemia
CPT/HCPCS: 36591; 80048; 80053; 80076; 81001; 82306; 82607; 82728; 82746; 83540; 83550; 83690; 83735; 84443; 84484; 85025; 93005; 94640; 96361; 96365; 96366; 96372; 96375; 96376; 97162; 97165; 97802; 99221; 99285; J7030; A4216; G0378